=== PATIENT | male | born 1980 | race Caucasian/White ===

== ENCOUNTER 2020-12-24 07:12 | Emergency (ER) | payer OTHER ==
[~2020-12-24] VITALS: Ht 177.8 cm; Wt 68.0 kg
[2020-12-24] MEDS ORDERED: CEPHALEXIN500 MG ORAL (07:28)
[2020-12-24] MEDS ORDERED: BACITRACIN1 EACH TOPIC (07:28)
[2020-12-24] MEDS ORDERED: Bacitracin Oint UD TOPIC ONE (07:30)
--- NOTE | 2020-12-24 07:33 | Emergency Room Report ---
History of Present Illness General Chief Complaint: Skin Rash/Abscess Source: Patient Present Illness HPI Patient is a 40-year-old male presents to the ER for a blister to his left heel. Patient states that he was at [facility] had a blister and when the removed tissue popped. He complains of pain to the area. He denies any fever or chills. Patient states that he was just [facility] in centricity but left because he did not feel like waiting. He states that they gave him a prescription for Keflex but he never got it. Allergies: Coded Allergies: No Known Allergies (Unverified , 12/24/20) COVID-19 Screening Contact w/high risk pt: No Experienced COVID-19 symptoms?: No COVID-19 Testing performed PULLMAN CONDUCTOR: No Patient History Reviewed Nursing Documentation: PMH: Agreed; PSxH: Agreed Nursing Documentation-PMH Past Medical History: No Stated History Review of Systems All Other Systems: negative except mentioned in HPI Physical Exam Vital Signs Date Time Temp Pulse Resp B/P (MAP) Pulse Ox O2 Delivery O2 Flow Rate FiO2 12/24/20 07:26 98.1 97 15 130/80 (97) 95 Room Air Sp02 EP Interpretation: reviewed, normal General Appearance: no apparent distress, alert, GCS 15, non-toxic, other - Disheveled Head: normocephalic, atraumatic Eyes: bilateral eye normal inspection, bilateral eye PERRL ENT: hearing grossly normal, normal pharynx, no angioedema, normal voice Neck: full range of motion, supple/symm/no masses Respiratory: no respiratory distress, no accessory muscle use, speaking full sentences Cardiovascular #1: regular rate, rhythm Gastrointestinal: non tender, soft Rectal: deferred Musculoskeletal: normal range of motion, other - Left heel open blister no purulent discharge no surrounding cellulitis no crepitus 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 Patient given prescription for topical antibiotics as well as Keflex. He has been given a postop surgical shoe for comfort. After discussing risks and benefits of further diagnostics, treatment plans, as well as indications for and risks of admission, the patient is agreeable to being discharged home. I have explained that their evaluation and treatment in the emergency department today is an important step towards them achieving better health but that their evaluation today is not intended to replace further evaluation and treatment by a physician in their local clinic. I have explained that while the current findings suggest no immediate life threatening emergency they will require further evaluation and treatment by a physician of their choice in their area. They understand that it will be necessary for them to review the final reports of their ED visit with their clinic physician. We have reviewed indications for return to the Emergency Department. I have explained that additional time may need to pass and/or additional testing as an outpatient may be necessary before a definitive diagnosis can be made. They tell me they are willing to follow up as instructed within the timeframe I recommend. They appear to understand what we discussed. Additionally they understand that if they are unable to be seen by an outpatient physician they are welcome, and in fact should, return to the Emergency Department for a repeat evaluation. The patient is stable at time of discharge. Last Vital Signs Date Time Temp Pulse Resp B/P (MAP) Pulse Ox O2 Delivery O2 Flow Rate FiO2 12/24/20 07:26 98.1 97 15 130/80 (97) 95 Room Air Disposition: HOME, SELF-CARE Condition: Stable Scripts Bacitracin (BACITRACIN*) 1 Each Packet 1 PACKET TOPIC BID, #30 PACKET 0 Refills Prov: Mimi Montilla M.D. 12/24/20 Cephalexin* (KEFLEX*) 500 Mg Capsule 500 MG ORAL EVERY 8 HOURS for 7 Days, CAP Prov: Mimi Montilla M.D. 12/24/20 Referrals: [facility] Patient Instructions: Blisters Additional Instructions: The patient was provided with discharge instructions, notified to follow-up with a primary care doctor and or specialist in the next 24-48 hours, and to return to the ED if they have worsening of their symptoms. Please note that this report is being documented using SeeJay technology. This can lead to erroneous entry secondary to incorrect interpretation by the dictating instrument. Mimi Montilla M.D. Dec 24, 2020 07:33
--- NOTE | 2020-12-24 07:45 | NUR ---
ER DISCHARGE NOTE: Patient is cleared to be discharged per ERMD, pt is aox4, on room air, with stable vital signs. pt was given dc and prescription instructions, pt was able to verbalize understanding. pt is able to ambulate with steady gait. pt took all belongings.
[2020-12-24 08:29] VITALS: BP 130/80
== END 2020-12-24 07:45 | disposition home or self-care (01) ==
LOC: EMR 07:38
DX: S90.822A Blister (nonthermal), left foot, initial encounter (principal); X58.XXXA Exposure to other specified factors, initial encounter; Y92.9 Unspecified place or not applicable
CPT/HCPCS: 99282